=== PATIENT | female | born 1950 | race Two or more races ===

== ENCOUNTER 2018-07-27 01:04 | Emergency (ER) | payer OTHER ==
[~2018-07-27] VITALS: Ht 149.9 cm; Wt 53.5 kg
[2018-07-27] MEDS ORDERED: CRESTOR10 MG (01:12)
[2018-07-27] MEDS ORDERED: GLIMEPIRIDE2 MG (01:12)
[2018-07-27] MEDS ORDERED: JANUMET XR 50-1 EACH (01:13)
[2018-07-27] MEDS ORDERED: COZAAR100 MG (01:13)
[2018-07-27] MEDS ORDERED: SYNTHROID88 MCG (01:13)
[2018-07-27] MEDS ORDERED: TRAMADOL HCL50 MG PO (05:06)
[2018-07-28] MEDS ORDERED: [UNRECOGNIZED DRUG - OTHER] PO (12:51)
[2018-07-28] MEDS ORDERED: CRESTOR10 MG PO (12:51)
[2018-07-28] MEDS ORDERED: [UNRECOGNIZED DRUG - CODE] PO (12:52)
[2018-07-28] MEDS ORDERED: GLIMEPIRIDE2 MG PO (12:52)
[2018-07-28] MEDS ORDERED: FOLGARD TABLET1 EACH PO (12:53)
== END 2018-07-27 05:15 | disposition home or self-care (01) ==
LOC: ER 01:04
DX: S52.612A Displaced fracture of left ulna styloid process, initial encounter for closed fracture (principal); W18.39XA Other fall on same level, initial encounter; Y93.89 Activity, other specified; Y92.098 Other place in other non-institutional residence as the place of occurrence of the external cause; Y99.8 Other external cause status

== ENCOUNTER → 2018-07-27 15:39 | Outpatient (CLI) | payer OTHER ==
[~2018-07-27 15:39] MED LIST: COZAAR100 MG; CRESTOR10 MG; CRESTOR10 MG PO; FOLGARD TABLET1 EACH PO; GLIMEPIRIDE2 MG; GLIMEPIRIDE2 MG PO; JANUMET XR 50-1 EACH; SYNTHROID88 MCG; TRAMADOL HCL50 MG PO; [UNRECOGNIZED DRUG - CODE] PO; [UNRECOGNIZED DRUG - OTHER] PO
== END | disposition home or self-care (01) ==
LOC: LAB 15:39
DX: N39.0 Urinary tract infection, site not specified (principal); Z22.322 Carrier or suspected carrier of Methicillin resistant Staphylococcus aureus; D64.89 Other specified anemias; E88.89 Other specified metabolic disorders; D68.8 Other specified coagulation defects; Z76.89 Persons encountering health services in other specified circumstances; I49.8 Other specified cardiac arrhythmias

== ENCOUNTER 2018-07-29 06:49 | Day surgery (SDC) | payer OTHER | END 2018-07-29 13:35 | disposition home or self-care (01) | LOC: CIR.AMB 06:49 | DX: S52.532A Colles' fracture of left radius, initial encounter for closed fracture (principal) ==

== ENCOUNTER 2018-09-05 12:45 | Outpatient (CLI) | payer OTHER | END 2018-09-05 15:21 | disposition home or self-care (01) | LOC: RAD 12:45 | DX: S52.532D Colles' fracture of left radius, subsequent encounter for closed fracture with routine healing (principal) ==

== ENCOUNTER 2018-10-06 10:28 | Outpatient (CLI) | payer OTHER | END 2018-10-06 10:34 | disposition home or self-care (01) | LOC: LAB 10:28 | DX: E55.9 Vitamin D deficiency, unspecified (principal); M85.88 Other specified disorders of bone density and structure, other site; E21.3 Hyperparathyroidism, unspecified; E88.89 Other specified metabolic disorders; M81.8 Other osteoporosis without current pathological fracture; E56.1 Deficiency of vitamin K ==

== ENCOUNTER 2021-06-08 18:11 | Emergency (ER) | payer OTHER ==
[~2021-06-08] VITALS: Ht 149.9 cm; Wt 46.3 kg
[2021-06-08] MEDS ORDERED: SYNTHROID75 MCG PO (18:20)
[2021-06-08] MEDS ORDERED: JANUMET 50-1,01 EACH PO (18:21)
[2021-06-08] MEDS ORDERED: OMEGA 3 1,0001 EACH PO (18:22)
== END 2021-06-09 13:33 | disposition home or self-care (01) ==
LOC: ER 18:11
DX: R10.84 Generalized abdominal pain (principal); K35.80 Unspecified acute appendicitis; K80.20 Calculus of gallbladder without cholecystitis without obstruction; N20.0 Calculus of kidney; Z20.822 Contact with and (suspected) exposure to COVID-19; I10 Essential (primary) hypertension; E11.9 Type 2 diabetes mellitus without complications; Z79.84 Long term (current) use of oral hypoglycemic drugs